=== PATIENT | male | born 1995 | race Hispanic/Latino ===

== ENCOUNTER 2018-10-21 09:55 | Emergency (ER) | payer BC ==
[~2018-10-21] VITALS: Ht 170.2 cm; Wt 86.4 kg
[2018-10-21] MEDS ORDERED: CYCLOBENZAPR5 MG PO (10:38)
[2018-10-21 10:45] VITALS: BP 122/85
== END 2018-10-21 10:45 | disposition home or self-care (01) | DRG 563 ==
LOC: ED 09:55
DX: S39.012A Strain of muscle, fascia and tendon of lower back, initial encounter (principal); X58.XXXA Exposure to other specified factors, initial encounter

== ENCOUNTER 2022-01-14 11:25 | Emergency (ER) | payer BC ==
[~2022-01-14] VITALS: Ht 170.2 cm; Wt 91.0 kg
[~2022-01-14 11:25] MED LIST: CYCLOBENZAPR5 MG PO
[2022-01-14 11:29] VITALS: BP 121/70
[2022-01-14] MEDS ORDERED: MOTRIN800 MG PO (11:59)
[2022-01-14] MEDS ORDERED: TRAMADOL HYDROC50 M1 PO (11:59)
[2022-01-14 12:05] VITALS: BP 121/70
== END 2022-01-14 12:13 | disposition home or self-care (01) | DRG 563 ==
LOC: ED 11:25
DX: S93.401A Sprain of unspecified ligament of right ankle, initial encounter (principal); X50.0XXA Overexertion from strenuous movement or load, initial encounter; Y93.89 Activity, other specified; Y99.0 Civilian activity done for income or pay